=== PATIENT | male | born 1965 | race Caucasian/White ===

== ENCOUNTER 2017-10-08 15:47 | Emergency (ER) | payer BC | END 2017-10-08 17:23 | disposition home or self-care (01) | LOC: M ED 15:47 | DX: F13.20 Sedative, hypnotic or anxiolytic dependence, uncomplicated (principal); F11.20 Opioid dependence, uncomplicated; F15.20 Other stimulant dependence, uncomplicated; K40.90 Unilateral inguinal hernia, without obstruction or gangrene, not specified as recurrent; M54.9 Dorsalgia, unspecified; G89.29 Other chronic pain; Z98.1 Arthrodesis status; F17.200 Nicotine dependence, unspecified, uncomplicated; Z88.5 Allergy status to narcotic agent; Z79.899 Other long term (current) drug therapy | CPT/HCPCS: 99284 ==

== ENCOUNTER 2017-12-16 10:36 | Day surgery (SDC) | payer BC ==
[~2017-12-16 10:36] MED LIST: LIDOCAINE 1% MDV 20ML VIAL SQ
[2017-12-16] MEDS: LR 1,000 ML IV (11:10)
[2017-12-16] MEDS ORDERED: MIDAZOLAM INJ 2 MG/2 ML VIAL (J2250) As Ordered (12:19)
[2017-12-16] MEDS ORDERED: fentaNYL 250 MCG/5 ML INJECTION (J3010) As Ordered (12:19)
[2017-12-16] MEDS ORDERED: LIDOCAINE 2% INJ 100 MG/5 ML SDV (FOR ANES.) As Ordered (12:20)
[2017-12-16] MEDS ORDERED: ONDANSETRON 4MG/2ML VIAL (J2405) As Ordered (12:20)
[2017-12-16] MEDS ORDERED: dexameTHASONE 4 MG/ML 1ML VIAL (J1100) As Ordered (12:20)
[2017-12-16] MEDS ORDERED: PROPOFOL 200 MG/20 ML VIAL As Ordered (12:20)
[2017-12-16] MEDS ORDERED: ROCURONIUM BROMIDE 50 MG/5 ML VIAL As Ordered ×2 (12:20→13:26)
[2017-12-16] MEDS: ceFAZolin SOD 1 GM in D5W MINI-BAG PLUS 50 ML IV (13:04)
[2017-12-16] MEDS ORDERED: KETOROLAC 60 MG/2 ML VIAL (J1885) As Ordered ×2 (13:56)
[2017-12-16] MEDS ORDERED: SUGAMMADEX SODIUM 500 MG/5 ML VIAL (BRIDION) As Ordered ×2 (13:57)
[2017-12-16] MEDS ORDERED: hydrALAZINE INJ 20 MG/ML VIAL As Ordered (14:16)
[2017-12-16] MEDS: BUPIVACAINE/EPIN 0.25% 30 ML VIAL As Ordered (14:53)
[2017-12-16] MEDS ORDERED: ONDANSETRON 4MG/2ML VIAL (J2405) IV ×2 (15:30)
[2017-12-16] MEDS ORDERED: fentaNYL 100 MCG/2 ML INJECTION (J3010) IV (15:30)
[2017-12-16] MEDS ORDERED: LR 1,000 ML IV ×2 (15:30)
[2017-12-16] MEDS ORDERED: PERCOCET 5MG/325MG TAB PO (15:30)
[2017-12-16] MEDS: NORCO, ANEXSIA 5/325MG TABLET (HYDROcodone/ACETAMINOPHEN) PO ×2 (15:31→16:09)
== END 2017-12-16 17:40 | disposition home or self-care (01) ==
LOC: M SDC 10:36
DX: K40.90 Unilateral inguinal hernia, without obstruction or gangrene, not specified as recurrent (principal); F41.9 Anxiety disorder, unspecified; F32.9 Major depressive disorder, single episode, unspecified; M12.9 Arthropathy, unspecified; M54.9 Dorsalgia, unspecified; Z88.5 Allergy status to narcotic agent; Z79.899 Other long term (current) drug therapy; Z72.0 Tobacco use
CPT/HCPCS: 49650

== ENCOUNTER → 2020-03-12 | Outpatient (CLI) | payer BC ==
[~2020-03-12] MED LIST changes: +ALPR1TAB3 PO; +CARI1TAB7 PO; +COLA100C2 OR; +FLECTOR PATCH; +FLEXERIL OR; +IBUP600T; +KLON1TAB OR; -LIDOCAINE 1% MDV 20ML VIAL SQ; +METAPROLOL OR; +METO25TA2 OR; +OXYC-517 PO; +OXYC10TA56 OR; +OXYC80TA14 OR; +PRAV1TAB39 OR; +PRAV40TA OR; +SERO1TAB OR; +SERT50TA2; +ZANA4CAP; +ZOLP10TA2 PO
--- NOTE | 2020-03-12 08:43 | REP ---
INDICATION: YEARLY COMPARISON: 11/22/2012 TECHNIQUE: PA and lateral. FINDINGS: The mediastinum and cardiac silhouette are normal. The lung michelle are clear and without acute consolidation, effusion, or pneumothorax. The skeletal structures are intact and normal. IMPRESSION: No acute cardiopulmonary process. <Electronically signed by Edgar Guerrero > 03/12/20 0844
[2020-03-12 11:09] LABS: HEMATOCRIT 46.2 % (42.0-52.0); HEMOGLOBIN 15.2 g/dl (13.5-17.5); MEAN CORPUSCULAR HEMOGLOBIN 29.9 pg (27.0-33.0); MEAN CORPUSCULAR HGB CONC 32.9 g/dl (32.0-36.5); MEAN CORPUSCULAR VOLUME 90.9 fl (80.0-96.0); PLATELET COUNT, AUTOMATED 291 10^3/uL (150-450); RED BLOOD COUNT 5.08 10^6/uL (4.30-6.10); WHITE BLOOD COUNT 6.5 10^3/uL (4.0-10.0)
[2020-03-12 11:40] LABS: ALBUMIN 3.9 GM/DL (3.2-5.2); ALT/SGPT 33 U/L (12-78); BILIRUBIN,TOTAL 0.2 MG/DL (0.2-1.0); BLOOD UREA NITROGEN 18 MG/DL (7-18); CALCIUM LEVEL 9.1 MG/DL (8.5-10.1); CARBON DIOXIDE LEVEL 29 MEQ/L (21-32); CHLORIDE LEVEL 106 MEQ/L (98-107); CHOLESTEROL LEVEL 189 MG/DL (<200); CHOLESTEROL RISK RATIO 4.973 (<5); CREATININE FOR GFR 1.05 MG/DL (0.70-1.30); GLOMERULAR FILTRATION RATE > 60.0 (>56); GLUCOSE, FASTING 94 MG/DL (70-100); HDL CHOLESTEROL 38 MG/DL (>40); LDL CHOLESTEROL 116 MG/DL (<100); NON-HDL-C 151 MG/DL; POTASSIUM SERUM 4.3 MEQ/L (3.5-5.1); PROSTATIC SPECIFIC AG MONITOR 1.34 NG/ML (< 4.00); SODIUM LEVEL 143 MEQ/L (136-145); TOTAL PROTEIN 7.2 GM/DL (6.4-8.2); TRIGLYCERIDES LEVEL 176 MG/DL (<150)
[2020-03-12 11:41] LABS: TESTOSTERONE 517 NG/DL (241-827)
[2020-03-12 12:05] LABS: HEMOGLOBIN A1c 5.2 %
== END ==
LOC: M WUC 08:02
PROVIDERS: ATTEND Family Medicine
DX: E03.9 Hypothyroidism, unspecified (principal); I10 Essential (primary) hypertension; R53.83 Other fatigue

== ENCOUNTER → 2021-04-27 | Outpatient (CLI) | payer BC ==
[2021-04-27 16:25] LABS: HEMATOCRIT 49.7 % (42.0-52.0); HEMOGLOBIN 16.8 g/dl (13.5-17.5); MEAN CORPUSCULAR HEMOGLOBIN 30.3 pg (27.0-33.0); MEAN CORPUSCULAR HGB CONC 33.8 g/dl (32.0-36.5); MEAN CORPUSCULAR VOLUME 89.5 fl (80.0-96.0); PLATELET COUNT, AUTOMATED 319 10^3/uL (150-450); RED BLOOD COUNT 5.55 10^6/uL (4.30-6.10); WHITE BLOOD COUNT 8.1 10^3/uL (4.0-10.0)
[2021-04-27 16:36] LABS: HEMOGLOBIN A1c 5.8 %
[2021-04-27 16:39] LABS: ALBUMIN 3.9 GM/DL (3.2-5.2); ALT/SGPT 46 U/L (12-78); BILIRUBIN,TOTAL 0.6 MG/DL (0.2-1.0); BLOOD UREA NITROGEN 21 MG/DL (7-18); CALCIUM LEVEL 8.8 MG/DL (8.5-10.1); CARBON DIOXIDE LEVEL 32 MEQ/L (21-32); CHLORIDE LEVEL 107 MEQ/L (98-107); CHOLESTEROL LEVEL 218 MG/DL (<200); CHOLESTEROL RISK RATIO 5.891 (<5); CREATININE FOR GFR 1.14 MG/DL (0.70-1.30); GLOMERULAR FILTRATION RATE > 60.0 (>56); GLUCOSE, FASTING 97 MG/DL (70-100); HDL CHOLESTEROL 37 MG/DL (>40); LDL CHOLESTEROL 124 MG/DL (<100); NON-HDL-C 181 MG/DL; POTASSIUM SERUM 4.5 MEQ/L (3.5-5.1); PROSTATIC SPECIFIC AG MONITOR 1.82 NG/ML (< 4.00); SODIUM LEVEL 141 MEQ/L (136-145); TOTAL PROTEIN 7.6 GM/DL (6.4-8.2); TRIGLYCERIDES LEVEL 283 MG/DL (<150)
== END ==
LOC: M WUC 12:17
PROVIDERS: ATTEND Family Medicine
DX: E03.9 Hypothyroidism, unspecified (principal); E11.9 Type 2 diabetes mellitus without complications; I10 Essential (primary) hypertension

== ENCOUNTER 2021-05-01 00:09 | Emergency (ER) | payer BC ==
[~2021-05-01] VITALS: Ht 175.3 cm; Wt 106.9 kg
[2021-05-01] MEDS ORDERED: ONDANSETRON 4MG/2ML VIAL IV ONE (01:05)
[2021-05-01] MEDS ORDERED: NS 1,000 ML IV ONE ×2 (01:35→03:25)
[2021-05-01 01:54] LABS: BASO # 0.1 10^3/uL (0.0-0.2); BASO % 0.6 % (0.0-1.0); EOS # 0.1 10^3/uL (0.0-0.5); EOS % 0.6 % (0.0-3.0); HEMATOCRIT 44.2 % (42.0-52.0); HEMOGLOBIN 14.7 g/dl (13.5-17.5); LYMPH % 15.7 % (24.0-44.0); MEAN CORPUSCULAR HEMOGLOBIN 30.2 pg (27.0-33.0); MEAN CORPUSCULAR HGB CONC 33.3 g/dl (32.0-36.5); MEAN CORPUSCULAR VOLUME 90.8 fl (80.0-96.0); MONO # 0.6 10^3/uL (0.0-0.8); MONO % 4.7 % (2.0-8.0); NEUTROPHILS # 9.7 10^3/uL (1.5-8.5); NEUTROPHILS % 77.8 % (36.0-66.0); PLATELET COUNT, AUTOMATED 286 10^3/uL (150-450); RED BLOOD COUNT 4.87 10^6/uL (4.30-6.10); WHITE BLOOD COUNT 12.5 10^3/uL (4.0-10.0)
[2021-05-01 02:16] LABS: ACETAMINOPHEN LEVEL < 2.0 UG/ML (10.0-30.0); BLOOD UREA NITROGEN 21 MG/DL (7-18); CALCIUM LEVEL 9.1 MG/DL (8.5-10.1); CARBON DIOXIDE LEVEL 24 MEQ/L (21-32); CHLORIDE LEVEL 102 MEQ/L (98-107); CREATININE FOR GFR 1.47 MG/DL (0.70-1.30); ETHYL ALCOHOL (ETHANOL) 0.019 % (0.000-0.010); GLOMERULAR FILTRATION RATE 52.6 (>56); GLUCOSE, FASTING 188 MG/DL (70-100); POTASSIUM SERUM 4.7 MEQ/L (3.5-5.1); SALICYLATE LEVEL < 1.7 MG/DL (5.0-30.0); SODIUM LEVEL 137 MEQ/L (136-145)
[2021-05-01 03:09] LABS: AMPHETAMINES LEVEL URINE NEGATIVE (NEGATIVE); BARBITURATES URINE NEGATIVE (NEGATIVE); BENZODIAZEPINES URINE NEGATIVE (NEGATIVE); CANNABINOIDS URINE POSITIVE (NEGATIVE); COCAINE METABOLITE URINE NEGATIVE (NEGATIVE); METHADONE URINE NEGATIVE (NEGATIVE); OPIATES URINE NEGATIVE (NEGATIVE); PHENCYCLIDINE URINE NEGATIVE (NEGATIVE)
[2021-05-01 05:02] LABS: BLOOD UREA NITROGEN 17 MG/DL (7-18); CALCIUM LEVEL 8.6 MG/DL (8.5-10.1); CARBON DIOXIDE LEVEL 29 MEQ/L (21-32); CHLORIDE LEVEL 106 MEQ/L (98-107); CREATININE FOR GFR 0.94 MG/DL (0.70-1.30); GLOMERULAR FILTRATION RATE > 60.0 (>56); GLUCOSE, FASTING 104 MG/DL (70-100); POTASSIUM SERUM 4.5 MEQ/L (3.5-5.1); SODIUM LEVEL 140 MEQ/L (136-145)
[2021-05-01] MEDS ORDERED: LevoFLOXacin 750 MG TABLET PO ONE (05:25)
[2021-05-01] MEDS ORDERED: LEVO750T14 PO (05:26)
[2021-05-01 05:45] VITALS: BP 133/79
== END 2021-05-01 06:01 | disposition home or self-care (01) ==
LOC: M ED 00:09
DX: N17.9 Acute kidney failure, unspecified (principal); F10.929 Alcohol use, unspecified with intoxication, unspecified; F19.10 Other psychoactive substance abuse, uncomplicated; J18.9 Pneumonia, unspecified organism; F11.11 Opioid abuse, in remission; F14.11 Cocaine abuse, in remission; F17.200 Nicotine dependence, unspecified, uncomplicated; Z87.820 Personal history of traumatic brain injury
CPT/HCPCS: 36415; 70450; 71045; 80048; 80143; 80307; 82077; 85025; 96361; 96374; 99285; J2405

== ENCOUNTER → 2021-06-25 | Outpatient (CLI) | payer BC ==
[~2021-06-25] MED LIST changes: +LEVO750T14 PO
== END ==
LOC: M WUC 13:08
PROVIDERS: ATTEND Family Medicine
DX: J44.9 Chronic obstructive pulmonary disease, unspecified (principal)

== ENCOUNTER → 2021-10-29 | Outpatient (CLI) | payer BC ==
[2021-10-29 10:33] LABS: HEMATOCRIT 48.5 % (42.0-52.0); HEMOGLOBIN 16.3 g/dl (13.5-17.5); MEAN CORPUSCULAR HEMOGLOBIN 30.6 pg (27.0-33.0); MEAN CORPUSCULAR HGB CONC 33.6 g/dl (32.0-36.5); PLATELET COUNT, AUTOMATED 297 10^3/uL (150-450); RED BLOOD COUNT 5.33 10^6/uL (4.30-6.10)
[2021-10-29 10:57] LABS: HEMOGLOBIN A1c 5.7 %
[2021-10-29 11:30] LABS: ALBUMIN 3.8 GM/DL (3.2-5.2); ALT/SGPT 30 U/L (12-78); BILIRUBIN,TOTAL 0.5 MG/DL (0.2-1.0); BLOOD UREA NITROGEN 9 MG/DL (7-18); CALCIUM LEVEL 9.1 MG/DL (8.5-10.1); CARBON DIOXIDE LEVEL 28 MEQ/L (21-32); CHLORIDE LEVEL 105 MEQ/L (98-107); CHOLESTEROL LEVEL 222 MG/DL (<200); CHOLESTEROL RISK RATIO 5.842 (<5); CREATININE FOR GFR 0.99 MG/DL (0.70-1.30); GLOMERULAR FILTRATION RATE > 60.0 (>56); GLUCOSE, FASTING 95 MG/DL (70-100); HDL CHOLESTEROL 38 MG/DL (>40); LDL CHOLESTEROL 107 MG/DL (<100); NON-HDL-C 184 MG/DL; POTASSIUM SERUM 4.3 MEQ/L (3.5-5.1); PROSTATIC SPECIFIC AG MONITOR 1.08 NG/ML (< 4.00); SODIUM LEVEL 140 MEQ/L (136-145); TOTAL PROTEIN 7.2 GM/DL (6.4-8.2); TRIGLYCERIDES LEVEL 383 MG/DL (<150)
[2021-10-29 12:12] LABS: TESTOSTERONE 532 NG/DL (241-827)
== END ==
LOC: M WUC 08:24
PROVIDERS: ATTEND Family Medicine
DX: D64.9 Anemia, unspecified (principal); E03.9 Hypothyroidism, unspecified; R53.83 Other fatigue

== ENCOUNTER → 2022-10-14 | Outpatient (CLI) | payer BC ==
[2022-10-14 12:25] LABS: HEMOGLOBIN 14.7 g/dl (13.5-17.5); MEAN CORPUSCULAR HEMOGLOBIN 29.8 pg (27.0-33.0); MEAN CORPUSCULAR HGB CONC 33.4 g/dl (32.0-36.5); MEAN CORPUSCULAR VOLUME 89.1 fl (80.0-96.0); PLATELET COUNT, AUTOMATED 375 10^3/uL (150-450); RED BLOOD COUNT 4.94 10^6/uL (4.30-6.10); WHITE BLOOD COUNT 9.7 10^3/uL (4.0-10.0)
[2022-10-14 13:07] LABS: ALKALINE PHOSPHATASE 80 U/L (46-116); ALT/SGPT 31 U/L (7.0-40); AST/SGOT 18 U/L (<34); BILIRUBIN,TOTAL 0.2 MG/DL (0.3-1.2); BLOOD UREA NITROGEN 17 MG/DL (9-23); CALCIUM LEVEL 9.4 MG/DL (8.5-10.1); CARBON DIOXIDE LEVEL 31 MMOL/L (20-31); CHLORIDE LEVEL 104 MMOL/L (98-107); CHOLESTEROL LEVEL 177 MG/DL (<200); CHOLESTEROL RISK RATIO 4.24 (<5); CREATININE FOR GFR 0.92 MG/DL (0.70-1.30); GLOMERULAR FILTRATION RATE > 60.0 (>56); GLUCOSE, FASTING 94 MG/DL (60-100); HDL CHOLESTEROL 41.7 MG/DL (>40); LDL CHOLESTEROL 86.1 MG/DL (<100); NON-HDL-C 135.3 MG/DL; POTASSIUM SERUM 5.1 MMOL/L (3.5-5.1); PROSTATIC SPECIFIC AG MONITOR 0.69 NG/ML (< 4.00); SODIUM LEVEL 140 MMOL/L (136-145); TESTOSTERONE 581 NG/DL (241-827); THYROID STIMULATING HORMONE 2.084 uIU/ML (0.55-4.78); TOTAL PROTEIN 7.4 G/DL (5.7-8.2); TRIGLYCERIDES LEVEL 246 MG/DL (<150)
== END ==
LOC: M RAD 11:36
PROVIDERS: ATTEND Family Medicine
DX: R53.83 Other fatigue (principal); I10 Essential (primary) hypertension; E03.9 Hypothyroidism, unspecified

== ENCOUNTER 2023-10-11 08:27 | Observation (INO) | payer BC ==
[~2023-10-11] VITALS: Ht 175.3 cm; Wt 96.4 kg
[2023-10-11] MEDS ORDERED: LEVO88TA3 PO (08:39)
[2023-10-11] MEDS ORDERED: LISI10TA22 PO (08:39)
[2023-10-11] MEDS ORDERED: SIMV20TA22 PO (08:39)
[2023-10-11] MEDS ORDERED: ATOM40CA9 PO (08:39)
[2023-10-11 10:11] LABS: BASO # 0.1 10^3/uL (0.0-0.2); BASO % 0.8 % (0.0-1.0); EOS # 0.2 10^3/uL (0.0-0.5); EOS % 3.1 % (0.0-3.0); HEMATOCRIT 38.6 % (42.0-52.0); HEMOGLOBIN 13.2 g/dl (13.5-17.5); LYMPH # 1.3 10^3/uL (1.5-5.0); LYMPH % 16.6 % (24.0-44.0); MEAN CORPUSCULAR HEMOGLOBIN 31.2 pg (27.0-33.0); MEAN CORPUSCULAR HGB CONC 34.2 g/dl (32.0-36.5); MEAN CORPUSCULAR VOLUME 91.3 fl (80.0-96.0); MONO # 0.7 10^3/uL (0.0-0.8); MONO % 8.9 % (2.0-8.0); NEUTROPHILS # 5.5 10^3/uL (1.5-8.5); NEUTROPHILS % 70.2 % (36.0-66.0); PLATELET COUNT, AUTOMATED 342 10^3/uL (150-450); RED BLOOD COUNT 4.23 10^6/uL (4.30-6.10); WHITE BLOOD COUNT 7.8 10^3/uL (4.0-10.0)
[2023-10-11 10:30] LABS: CK-MB VALUE MASS 31.4 NG/ML (<3.6)
[2023-10-11 10:32] LABS: BLOOD UREA NITROGEN 23 MG/DL (9-23); CARBON DIOXIDE LEVEL 27 MMOL/L (20-31); CHLORIDE LEVEL 108 MMOL/L (98-107); CREATININE FOR GFR 0.86 MG/DL (0.70-1.30); GLOMERULAR FILTRATION RATE > 60.0 (>56); GLUCOSE, FASTING 114 MG/DL (60-100); POTASSIUM SERUM 4.4 MMOL/L (3.5-5.1); SODIUM LEVEL 138 MMOL/L (136-145)
[2023-10-11 10:34] LABS: THYROID STIMULATING HORMONE 1.182 uIU/ML (0.55-4.78)
[2023-10-11 10:40] LABS: AMPHETAMINES LEVEL URINE NEGATIVE (NEGATIVE); BARBITURATES URINE NEGATIVE (NEGATIVE); BENZODIAZEPINES URINE NEGATIVE (NEGATIVE); CANNABINOIDS URINE NEGATIVE (NEGATIVE); COCAINE METABOLITE URINE NEGATIVE (NEGATIVE); METHADONE URINE NEGATIVE (NEGATIVE); PHENCYCLIDINE URINE NEGATIVE (NEGATIVE)
[2023-10-11 10:44] LABS: OPIATES URINE POSITIVE (NEGATIVE)
[2023-10-11 10:44] LABS: CPK CREATINE PHOSPHOKINASE 5746 U/L (46-171); MB/CK RELATIVE INDEX 0.54 (< OR =4)
[2023-10-11] MEDS: NS 1,000 ML IV ONE (11:01)
[2023-10-11] MEDS ORDERED: OXYC10TA12 PO (11:52)
[2023-10-11] MEDS ORDERED: HOME MED LIST COMPLETE! XX SCH (11:55)
[2023-10-11] MEDS ORDERED: carisoprodoL 350 MG TAB PO PRN (12:10)
[2023-10-11] MEDS: NS 1,000 ML IV SCH (12:40)
[2023-10-11 13:27] LABS: ALBUMIN 3.8 G/DL (3.2-5.2); ALKALINE PHOSPHATASE 77 U/L (46-116); ALT/SGPT 395 U/L (7.0-40); AST/SGOT 326 U/L (<34); BILIRUBIN,DIRECT 0.3 MG/DL (<0.4); BILIRUBIN,TOTAL 0.6 MG/DL (0.3-1.2); TOTAL PROTEIN 6.5 G/DL (5.7-8.2)
[2023-10-11] MEDS: oxyCODONE 5MG TAB PO SCH (14:11)
[2023-10-11 14:27] VITALS: BP 133/85; TEMP 97.2; O2SAT 96
[2023-10-11] MEDS: zolPIDEM TARTRATE 5 MG TAB PO SCH (20:12)
[2023-10-11 20:23] VITALS: BP 140/84; TEMP 97.2; O2SAT 96
[2023-10-12 04:00] VITALS: BP 139/83; TEMP 97.3; O2SAT 95
[2023-10-12] MEDS: LEVOTHYROXINE 88MCG TABLET (0.088 MG) PO SCH (05:44)
[2023-10-12 05:54] LABS: HEMATOCRIT 36.7 % (42.0-52.0); HEMOGLOBIN 12.4 g/dl (13.5-17.5); MEAN CORPUSCULAR HGB CONC 33.8 g/dl (32.0-36.5); MEAN CORPUSCULAR VOLUME 91.8 fl (80.0-96.0); PLATELET COUNT, AUTOMATED 318 10^3/uL (150-450); WHITE BLOOD COUNT 6.9 10^3/uL (4.0-10.0)
[2023-10-12 06:19] LABS: BLOOD UREA NITROGEN 14 MG/DL (9-23); CALCIUM LEVEL 8.3 MG/DL (8.5-10.1); CARBON DIOXIDE LEVEL 26 MMOL/L (20-31); CHLORIDE LEVEL 109 MMOL/L (98-107); CREATININE FOR GFR 0.81 MG/DL (0.70-1.30); GLOMERULAR FILTRATION RATE > 60.0 (>56); GLUCOSE, FASTING 104 MG/DL (60-100); POTASSIUM SERUM 4.2 MMOL/L (3.5-5.1); SODIUM LEVEL 137 MMOL/L (136-145)
[2023-10-12 06:40] LABS: CPK CREATINE PHOSPHOKINASE 2937 U/L (46-171)
[2023-10-12 08:00] VITALS: BP 145/84
[2023-10-12] MEDS: ENOXAPARIN 40MG/0.4ML SYRINGE (J1650 PER 10MG) SC SCH (08:01)
[2023-10-12 12:00] VITALS: BP 144/83; TEMP 97; O2SAT 96
[2023-10-13] MEDS ORDERED: ATOMOXETINE HCL 40 MG CAP (STRATTERA) PO SCH (09:00)
== END 2023-10-12 12:16 | disposition home or self-care (01) ==
LOC: M ED 08:27 → M ED INP 08:28 → M MSPAV 14:25
PROVIDERS: ADMIT Internal Medicine; ATTEND Internal Medicine
DX: M62.82 Rhabdomyolysis (principal); G47.00 Insomnia, unspecified; F39 Unspecified mood [affective] disorder; I10 Essential (primary) hypertension; G89.4 Chronic pain syndrome; Z79.899 Other long term (current) drug therapy; F90.9 Attention-deficit hyperactivity disorder, unspecified type; E03.9 Hypothyroidism, unspecified; R74.01 Elevation of levels of liver transaminase levels
CPT/HCPCS: 36415; 71045; 80048; 80076; 80307; 82550; 82553; 84443; 84484; 85025; 85027; 87486; 87581; 87633; 87798; 93005; 93041; 94760; 96361; 96372; 96374; 99285; J1650

== ENCOUNTER 2024-01-28 13:59 | Emergency (ER) | payer BC ==
[~2024-01-28] VITALS: Ht 175.3 cm; Wt 79.1 kg
[~2024-01-28 13:59] MED LIST changes: +ATOM40CA9 PO; -LEVO750T14 PO; +LEVO75TAB PO; +LEVO88TA3 PO; +LISI10TA22 PO; +OXYC10TA12 PO; +SIMV20TA22 PO
[2024-01-28] MEDS ORDERED: CLON1TAB8 (14:14)
[2024-01-28] MEDS ORDERED: NALO25TA (14:14)
[2024-01-28] MEDS ORDERED: QUET100T2 (14:14)
[2024-01-28] MEDS ORDERED: PRAZ1CAP (14:14)
[2024-01-28 15:00] LABS: BASO # 0.1 10^3/uL (0.0-0.2); EOS # 0.2 10^3/uL (0.0-0.5); EOS % 2.7 % (0.0-3.0); HEMATOCRIT 39.7 % (42.0-52.0); HEMOGLOBIN 13.3 g/dl (13.5-17.5); LYMPH % 27.5 % (24.0-44.0); MEAN CORPUSCULAR HEMOGLOBIN 30.8 pg (27.0-33.0); MEAN CORPUSCULAR HGB CONC 33.5 g/dl (32.0-36.5); MEAN CORPUSCULAR VOLUME 91.9 fl (80.0-96.0); MONO # 0.5 10^3/uL (0.0-0.8); MONO % 7.3 % (2.0-8.0); NEUTROPHILS # 4.3 10^3/uL (1.5-8.5); NEUTROPHILS % 61.1 % (36.0-66.0); PLATELET COUNT, AUTOMATED 353 10^3/uL (150-450); RED BLOOD COUNT 4.32 10^6/uL (4.30-6.10); WHITE BLOOD COUNT 7.1 10^3/uL (4.0-10.0)
[2024-01-28 15:28] LABS: BLOOD UREA NITROGEN 13 MG/DL (9-23); CALCIUM LEVEL 9.3 MG/DL (8.3-10.6); CARBON DIOXIDE LEVEL 29 MMOL/L (20-31); CHLORIDE LEVEL 108 MMOL/L (98-107); CREATININE FOR GFR 1.03 MG/DL (0.70-1.30); GLOMERULAR FILTRATION RATE > 60.0 (>49); GLUCOSE, FASTING 94 MG/DL (74-106); MAGNESIUM LEVEL 2.1 MG/DL (1.8-2.4); POTASSIUM SERUM 4.7 MMOL/L (3.5-5.1); SODIUM LEVEL 143 MMOL/L (136-145)
[2024-01-28 15:53] VITALS: BP 124/60; TEMP 97.3; O2SAT 98
== END 2024-01-28 16:03 | disposition home or self-care (01) ==
LOC: M ED 13:59
DX: R14.0 Abdominal distension (gaseous) (principal); I10 Essential (primary) hypertension; J45.909 Unspecified asthma, uncomplicated; K21.9 Gastro-esophageal reflux disease without esophagitis; E03.9 Hypothyroidism, unspecified; F17.200 Nicotine dependence, unspecified, uncomplicated; Z79.811 Long term (current) use of aromatase inhibitors; Z79.899 Other long term (current) drug therapy; Z88.5 Allergy status to narcotic agent

== ENCOUNTER → 2024-02-16 | Outpatient (CLI) | payer BC ==
[~2024-02-16] MED LIST changes: +CLON1TAB8; +NALO25TA; +PRAZ1CAP; +QUET100T2
[2024-02-16 11:01] LABS: HEMATOCRIT 41.7 % (42.0-52.0); HEMOGLOBIN 14.5 g/dl (13.5-17.5); MEAN CORPUSCULAR HEMOGLOBIN 30.6 pg (27.0-33.0); MEAN CORPUSCULAR HGB CONC 34.8 g/dl (32.0-36.5); PLATELET COUNT, AUTOMATED 353 10^3/uL (150-450); RED BLOOD COUNT 4.74 10^6/uL (4.30-6.10); WHITE BLOOD COUNT 7.2 10^3/uL (4.0-10.0)
[2024-02-16 11:36] LABS: HEMOGLOBIN A1c 5.5 % (4.0-6.0)
[2024-02-16 11:37] LABS: ALBUMIN 4.3 G/DL (3.2-5.2); ALKALINE PHOSPHATASE 90 U/L (40-129); ALT/SGPT 55 U/L (7.0-40); AST/SGOT 76 U/L (<34); BILIRUBIN,TOTAL 0.7 MG/DL (0.3-1.2); BLOOD UREA NITROGEN 9 MG/DL (9-23); CARBON DIOXIDE LEVEL 27 MMOL/L (20-31); CHLORIDE LEVEL 103 MMOL/L (98-107); CHOLESTEROL LEVEL 184 MG/DL (<200); CREATININE FOR GFR 0.84 MG/DL (0.70-1.30); GLOMERULAR FILTRATION RATE > 60.0 (>49); GLUCOSE, FASTING 113 MG/DL (74-106); HDL CHOLESTEROL 57.5 MG/DL (>40); LDL CHOLESTEROL 108.5 MG/DL (<100); NON-HDL-C 126.5 MG/DL; SODIUM LEVEL 138 MMOL/L (136-145); TOTAL PROTEIN 7.1 G/DL (5.7-8.2); TRIGLYCERIDES LEVEL 90 MG/DL (<150)
[2024-02-16 11:38] LABS: TESTOSTERONE 309 NG/DL (241-827); THYROID STIMULATING HORMONE 1.429 uIU/ML (0.55-4.78)
== END ==
LOC: M RAD 09:53 → M LAB 09:53
PROVIDERS: ATTEND Family Medicine
DX: R53.83 Other fatigue (principal)

== ENCOUNTER 2024-03-26 10:57 | Day surgery (SDC) | payer BC ==
[~2024-03-26] VITALS: Ht 175.3 cm; Wt 68.9 kg
[~2024-03-26 10:57] MED LIST changes: -CLON1TAB8; +CLON1TAB8 PO; +LIDOCAINE 2% 100MG/5ML SDV (FOR ANES.) As Ordered ONE; +MIRA3350 PO; -NALO25TA; +NALO25TA PO; +OMEP-173 PO; +fentaNYL 100 MCG/2 ML INJECTION As Ordered ONE; +propofoL 200 MG/20 ML VIAL As Ordered ONE
[2024-03-26] MEDS ORDERED: PHENYLephrine 500MCG 5ML (100MCG/ML) SYRINGE As Ordered ONE (12:52)
[2024-03-26 13:05] VITALS: TEMP 97.6
[2024-03-26 13:22] VITALS: BP 135/72; O2SAT 98
== END 2024-03-26 13:23 | disposition home or self-care (01) ==
LOC: M OPP 10:57
PROVIDERS: ATTEND Internal Medicine Gastroenterology
DX: Z12.11 Encounter for screening for malignant neoplasm of colon (principal); D12.3 Benign neoplasm of transverse colon; K62.1 Rectal polyp; K64.0 First degree hemorrhoids; K22.70 Barrett's esophagus without dysplasia; K57.30 Diverticulosis of large intestine without perforation or abscess without bleeding; R12 Heartburn; K31.89 Other diseases of stomach and duodenum; Z88.5 Allergy status to narcotic agent; Z79.899 Other long term (current) drug therapy; G47.33 Obstructive sleep apnea (adult) (pediatric); F17.210 Nicotine dependence, cigarettes, uncomplicated
CPT/HCPCS: 43239; 45380; 45385; 88305; J2371; J3010

== ENCOUNTER 2024-06-10 09:35 | Emergency (ER) | payer BC ==
[~2024-06-10] VITALS: Ht 205.7 cm; Wt 80.6 kg
[~2024-06-10 09:35] MED LIST changes: +CARI-555 PO; -CARI1TAB7 PO; -LIDOCAINE 2% 100MG/5ML SDV (FOR ANES.) As Ordered ONE; -fentaNYL 100 MCG/2 ML INJECTION As Ordered ONE; -propofoL 200 MG/20 ML VIAL As Ordered ONE
[2024-06-10 09:40] VITALS: TEMP 97.9
[2024-06-10] MEDS ORDERED: CARI-555 (10:02)
[2024-06-10 11:44] VITALS: BP 137/85; O2SAT 98
[2024-06-10] MEDS ORDERED: CLON1TAB8 PO (12:26)
[2024-06-10] MEDS ORDERED: QUET100T2 PO (12:26)
[2024-06-10] MEDS ORDERED: CARI-555 PO (12:26)
== END 2024-06-10 12:35 | disposition home or self-care (01) ==
LOC: M ED 09:35
DX: Z76.0 Encounter for issue of repeat prescription (principal); F90.9 Attention-deficit hyperactivity disorder, unspecified type; K21.9 Gastro-esophageal reflux disease without esophagitis; M54.50 Low back pain, unspecified; F17.200 Nicotine dependence, unspecified, uncomplicated; Z88.5 Allergy status to narcotic agent; Z79.899 Other long term (current) drug therapy

== ENCOUNTER 2024-09-29 14:14 | Emergency (ER) | payer BC ==
[~2024-09-29] VITALS: Ht 175.3 cm; Wt 82.7 kg
[~2024-09-29 14:14] MED LIST changes: +CARI-555; +QUET100T2 PO
[2024-09-29] MEDS ORDERED: CARI-555 PO (17:10)
[2024-09-29] MEDS ORDERED: CLON1TAB17 PO (17:11)
[2024-09-29] MEDS ORDERED: QUET100T2 PO (17:13)
[2024-09-29] MEDS: clonazePAM 1 MG TAB PO ONE (17:22)
[2024-09-29 17:26] VITALS: BP 155/84; TEMP 97.7; O2SAT 97
== END 2024-09-29 17:27 | disposition home or self-care (01) ==
LOC: M ED 14:14
DX: F41.1 Generalized anxiety disorder (principal); M54.50 Low back pain, unspecified; Z76.0 Encounter for issue of repeat prescription; F17.200 Nicotine dependence, unspecified, uncomplicated; F10.10 Alcohol abuse, uncomplicated; E78.5 Hyperlipidemia, unspecified; Z88.5 Allergy status to narcotic agent; Z79.899 Other long term (current) drug therapy

== ENCOUNTER 2024-10-07 04:47 | Inpatient (IN) | payer BC ==
[~2024-10-07] VITALS: Ht 177.8 cm; Wt 78.5 kg
[~2024-10-07 04:47] MED LIST changes: +CLON1TAB17 PO
[2024-10-07 05:24] LABS: PLATELET COUNT, AUTOMATED 349 10^3/uL (150-450)
[2024-10-07 05:46] LABS: ETHYL ALCOHOL (ETHANOL) < 0.003 % (0.000-0.010)
[2024-10-07 05:47] LABS: SALICYLATE LEVEL < 3.0 MG/DL (<30)
[2024-10-07 05:58] LABS: ALT/SGPT 222 U/L (7.0-40); AST/SGOT 591 U/L (<34); CALCIUM LEVEL 9.5 MG/DL (8.3-10.6); CARBON DIOXIDE LEVEL 23 MMOL/L (20-31); CHLORIDE LEVEL 98 MMOL/L (98-107); CREATININE FOR GFR 1.17 MG/DL (0.70-1.30); GLOMERULAR FILTRATION RATE 71.4 (>49); POTASSIUM SERUM 4.4 MMOL/L (3.5-5.1); SODIUM LEVEL 135 MMOL/L (136-145)
[2024-10-07] MEDS: NS (Normal Saline) 0.9% 1,000 ML IV ONE (07:00)
[2024-10-07 07:49] LABS: AMPHETAMINES LEVEL URINE NEGATIVE (NEGATIVE); BARBITURATES URINE NEGATIVE (NEGATIVE); BENZODIAZEPINES URINE NEGATIVE (NEGATIVE); CANNABINOIDS URINE NEGATIVE (NEGATIVE); COCAINE METABOLITE URINE NEGATIVE (NEGATIVE); METHADONE URINE NEGATIVE (NEGATIVE); OPIATES URINE NEGATIVE (NEGATIVE); PHENCYCLIDINE URINE NEGATIVE (NEGATIVE)
[2024-10-07 11:36] LABS: INR 1.06
[2024-10-07 11:45] LABS: HEPATITIS C VIRUS ABY INDEX 6.22 INDEX (<0.8)
[2024-10-07] MEDS ORDERED: CARI-555 PO (17:59)
[2024-10-07] MEDS ORDERED: CLON1TAB8 PO (18:02)
[2024-10-07] MEDS ORDERED: QUET100T2 PO (18:04)
[2024-10-07] MEDS ORDERED: HOME MED LIST COMPLETE! XX SCH (18:05)
[2024-10-07] MEDS: NICOTINE 21 MG/24 HR 1 EA TRANSDERMAL TD ONE (19:33)
[2024-10-07] MEDS: NS (Normal Saline) 0.9% 1,000 ML IV SCH (19:34)
[2024-10-07] MEDS ORDERED: MAALOX 30 ML SUSP *UDC PO PRN (21:15)
[2024-10-07] MEDS ORDERED: MOM 30 ML SUSPENSION UDC PO PRN (21:15)
[2024-10-07] MEDS ORDERED: ACETAMINOPHEN 325 MG TAB PO PRN (21:15)
[2024-10-07] MEDS: DOCUSATE SODIUM 100 MG CAPSULE PO SCH (23:07)
[2024-10-07] MEDS: THIAMINE 100 MG TAB PO SCH (23:07)
[2024-10-08] VITALS (14 sets, daily range): BP systolic 126–147; BP diastolic 65–92; TEMP 97.3–98.8; O2SAT 93–96
[2024-10-08 00:01] LABS: CK-MB VALUE MASS 61.0 NG/ML (<3.6)
[2024-10-08 00:23] LABS: CPK CREATINE PHOSPHOKINASE 5894.0 U/L (46-171); MB/CK RELATIVE INDEX 1.03 (< OR =4)
[2024-10-08 06:20] LABS: PLATELET COUNT, AUTOMATED 338 10^3/uL (150-450)
[2024-10-08] MEDS: NS (Normal Saline) 0.9% 1,000 ML IV ONE (07:43)
[2024-10-08 08:15] LABS: ALT/SGPT 150 U/L (7.0-40); AST/SGOT 275 U/L (<34); CALCIUM LEVEL 8.1 MG/DL (8.3-10.6); CARBON DIOXIDE LEVEL 24 MMOL/L (20-31); CHLORIDE LEVEL 101 MMOL/L (98-107); CREATININE FOR GFR 0.65 MG/DL (0.70-1.30); GLOMERULAR FILTRATION RATE > 90.0 (>49); MAGNESIUM LEVEL 1.6 MG/DL (1.8-2.4); POTASSIUM SERUM 4.0 MMOL/L (3.5-5.1); SODIUM LEVEL 133 MMOL/L (136-145)
[2024-10-08] MEDS: NICOTINE 21 MG/24 HR 1 EA TRANSDERMAL TD SCH (09:30)
[2024-10-08] MEDS: FOLIC ACID 1 MG TAB PO SCH (09:30)
[2024-10-08] MEDS: ENOXAPARIN 40 MG/0.4 ML SYRINGE (J1650 PER 10MG) SC SCH (09:31)
[2024-10-08] MEDS: MULTIVITAMINS/MINERALS THERAP 1 TAB PO SCH (09:31)
[2024-10-08] MEDS: MAG SULF 1GM/100ML (MAG RUN) 1 GM in IV 1 EA IV SCH (11:25)
[2024-10-08 11:45] LABS: KETONE, URINE AUTO RFX TRACE mg/dL (NEGATIVE); LEUKOCYTE ESTERASE UR AUTO RFX NEGATIVE (NEGATIVE); NITRITE, URINE AUTO RFX NEGATIVE (NEGATIVE); RBC, URINE AUTO RFX 0 /HPF (0-3); SQUAM EPITHELIAL CELL UR AURFX 0 /HPF (0-6); WBC, URINE AUTO RFX 0 /HPF (0-3)
[2024-10-08] MEDS: clonazePAM 1 MG TAB PO PRN (11:59)
[2024-10-08] MEDS: MAGNESIUM OXIDE 400 MG TAB PO SCH (20:10)
[2024-10-09 04:37] VITALS: BP 142/81; TEMP 97.5; O2SAT 93
[2024-10-09 06:34] LABS: PLATELET COUNT, AUTOMATED 310 10^3/uL (150-450)
[2024-10-09 07:13] LABS: ALT/SGPT 114 U/L (7.0-40); AST/SGOT 129 U/L (<34); CALCIUM LEVEL 8.8 MG/DL (8.3-10.6); CARBON DIOXIDE LEVEL 28 MMOL/L (20-31); CHLORIDE LEVEL 109 MMOL/L (98-107); CPK CREATINE PHOSPHOKINASE 1466 U/L (46-171); CREATININE FOR GFR 0.65 MG/DL (0.70-1.30); GLOMERULAR FILTRATION RATE > 90.0 (>49); MAGNESIUM LEVEL 1.9 MG/DL (1.8-2.4); POTASSIUM SERUM 4.2 MMOL/L (3.5-5.1); SODIUM LEVEL 144 MMOL/L (136-145)
[2024-10-09 11:32] VITALS: BP 143/90; TEMP 97.5; O2SAT 94
[2024-10-09 12:00] VITALS: BP 143/90
[2024-10-09] MEDS: clonazePAM 1 MG TAB PO SCH (13:38)
[2024-10-09] MEDS: ESCITALOPRAM OXALATE 5 MG TABLET PO SCH (13:51)
[2024-10-09 14:00] VITALS: BP 146/86; TEMP 97.5; O2SAT 94
[2024-10-09 20:00] VITALS: BP 144/90; TEMP 97.5; O2SAT 89
[2024-10-09 22:51] VITALS: BP 136/64; TEMP 97.7; O2SAT 91
[2024-10-10 04:00] VITALS: BP 142/77
[2024-10-10 06:00] VITALS: BP 142/77; TEMP 97.9; O2SAT 97
[2024-10-10 07:23] LABS: CPK CREATINE PHOSPHOKINASE 741 U/L (46-171)
[2024-10-10 07:39] LABS: ALT/SGPT 102 U/L (7.0-40); AST/SGOT 77 U/L (<34); CALCIUM LEVEL 9.2 MG/DL (8.3-10.6); CARBON DIOXIDE LEVEL 28 MMOL/L (20-31); CHLORIDE LEVEL 106 MMOL/L (98-107); CREATININE FOR GFR 0.66 MG/DL (0.70-1.30); GLOMERULAR FILTRATION RATE > 90.0 (>49); POTASSIUM SERUM 4.4 MMOL/L (3.5-5.1); SODIUM LEVEL 143 MMOL/L (136-145)
[2024-10-10] MEDS ORDERED: QUET100T2 PO (11:20)
[2024-10-10] MEDS ORDERED: LEXA5TAB13 PO (11:20)
[2024-10-10] MEDS ORDERED: CLON1TAB8 PO (11:20)
[2024-10-10 12:00] VITALS: BP 143/89; TEMP 97.5; O2SAT 94
[2024-10-10 21:37] LABS: HCV RNA QUANTITATION <15 NOT DETECTED IU/mL (NOT DETECTED); HCV RNA log10 <1.18 NOT DETECTED Log IU/mL (NOT DETECTED)
== END 2024-10-10 13:54 | disposition home or self-care (01) | DRG 351 ==
LOC: M ED 04:47 → M ED INP 21:11 → M PCU 10-08 03:53 → M MSPAV 10-08 18:34
PROVIDERS: ADMIT Student in an Organized Health Care Education/Training Program; ATTEND Internal Medicine
DX: M62.82 Rhabdomyolysis (principal); G93.41 Metabolic encephalopathy; E83.42 Hypomagnesemia; F39 Unspecified mood [affective] disorder; F41.9 Anxiety disorder, unspecified; G47.00 Insomnia, unspecified; D72.829 Elevated white blood cell count, unspecified; G89.29 Other chronic pain; I10 Essential (primary) hypertension; E03.9 Hypothyroidism, unspecified; F17.200 Nicotine dependence, unspecified, uncomplicated; R74.01 Elevation of levels of liver transaminase levels; Z79.899 Other long term (current) drug therapy; Z88.5 Allergy status to narcotic agent; F13.239 Sedative, hypnotic or anxiolytic dependence with withdrawal, unspecified